=== PATIENT | female | born 1995 | race Caucasian/White ===

== ENCOUNTER 2020-01-21 13:40 | Emergency (ER) | payer OTHER, SELFPAY ==
[2020-01-21 13:41] VITALS: BP 144/79; PULSE 109; RESP 16; TEMP 36.1; O2SAT 96; BMI 23.3
--- NOTE | 2020-01-21 14:09 | US_ITS ---
STUDY: ULTRASOUND OF THE FEMALE PELVIS - COMPLETE REASON FOR EXAM: Female, 24 years old. HEAVY BLEEDING/PAIN IUD PLACEMENT NO LMP KNOWN LMP: Unknown. TECHNIQUE: Transvaginal TECHNICAL QUALITY: Adequate. COMPARISON: None. FINDINGS: The uterus is anteverted and is in a midline position. The uterus measures 5.8 cm x 3.8 cm x 2.4 cm. Normal uterine cervix. The endometrium measures 2.7 mm in thickness, and is hyperechoic. There is no demonstrated endometrial mass. There is no demonstrated myometrial mass. I.U.D. - The patient does have an I.U.D. The right ovary is visualized. The right ovary measures 3.7 cm x 3 cm x 1.7 cm. There is no right ovarian cyst or ovarian mass. There is no visualized right adnexal mass or complex lesion. There is normal arterial and normal venous vascularity. The left ovary is visualized. The left ovary measures 3.4 cm x 1.9 cm x 1.8 cm. There is no left ovarian cyst or ovarian mass. There is no visualized left adnexal mass or complex lesion. There is normal arterial and normal venous vascularity. There is no fluid in the cul-de-sac. Polycystic ovary disease: No. US/Transvaginal Non- IMPRESSION: Normal female pelvis. Electronically Signed: Otilio Paul, at 15:37 EDT , Service support ,
--- NOTE | 2020-01-21 14:12 | ED.VIS.GEN ---
History of Present Illness Chief Complaint: Vag Bleeding Informant: Patient Narrative: Patient is a 24-year-old previously healthy female who presents to the emergency department for heavy vaginal bleeding, abdominal discomfort. She states that this started yesterday. She never has a menstrual cycle in the middle of the month. She has not had a menstrual period since having a Mirena IUD placed 1 year ago. She does occasionally have spotting. Every couple months she does get some irritation from the IUD. States that the pain is new and she believes it might be from this. Today whenever she went to the bathroom she thought that she passed tissue. She is currently sexually active. No concern for STD. No vaginal discharge. Currently rates abdominal pain as mild. No known aggravating or relieving factors. Has not tried anything for this. States she is gone through 5 tampons since yesterday. Denies any lightheadedness, chest pain or shortness of breath. No back pain. No urinary symptoms. No previous pregnancies. She did have one episode of vomiting yesterday but related that to drinking margaritas and [place] food. No nausea/vomiting today. No change in bowel habits. Past Medical History - Allergies and Home Meds Allergies/Adverse Reactions: Allergies No Known Allergies Allergy (Verified 01/21/20 13:40) Primary Care Physician: Selvin Velázquez MD [STAFF PHYSICIAN] - 3-5 Days Prior records reviewed: Yes Past Medical History: None Surgical History: - - Tonsillectomy Smoking Status: Never smoker Review of Systems All systems negative except as indicated General: Denies: Chills, Fever, Sweats Eyes: Denies: Visual changes - bilaterally, Diplopia ENT: Denies: Rhinorrhea, Sore throat Cardiovascular: Denies: Chest pain, Palpitations Respiratory: Denies: Dyspnea, Cough, Dyspnea on exertion Gastrointestinal: Reports: Abdominal pain. Denies: Nausea, Vomiting, Diarrhea, Melena, Hematochezia Genitourinary: Denies: Dysuria, Hematuria, Frequency Musculoskeletal: Denies: Back pain, Extremity Pain Skin: Denies: Rash, Wounds Neurological: Denies: Headache, Weakness, Numbness Physical Exam Vital Signs/Narrative: Vital Signs Temp Pulse Resp BP Pulse Ox 01/21/20 13:41 97 F L 109 H 16 144/79 H 96 Inital Vital Signs reviewed: Yes General: Well nourished, Well developed, No Acute Distress Head: Normocephalic, Atraumatic Eyes: Perrl, EOMI ENT: Moist mucous membranes, No rhinorrhea Neck: Supple, Nontender Cardiovascular: Regular rate, Regular rhythm, No murmurs Respiratory: No distress, CTA bilaterally, Chest nontender Abdomen: Soft, Nondistended, Normal bowel sounds, Tender - Mild tenderness to the left lower quadrant Back: Nontender, Normal Inspection. Negative for: CVA tenderness Extremities: Nontender, No edema. Negative for: Calf Tenderness Skin: Normal color, No rash Neurological: Alert, Oriented x3, Cranial nerves II-XII grossly intact, Normal Strength, Normal Sensation Psychological: Normal affect, Normal Mood Diagnostic/Tx/Re-eval - Medical Decision Making Patient presents to the emergency department for abnormal uterine bleeding and mild abdominal pain. She is concerned about her IUD. She also thought she might have passed tissue today. She does not think she was . Upon arrival to the emerge department mildly tachycardic but does not have any symptoms of anemia. Check basic lab work, urine, urine and ultrasound. Urine is negative. Patient not overly anemic. No significant acute lab work abnormality. No evidence of TIA on urinalysis. Ultrasound was unremarkable for any acute abnormality. IUD is present without any free fluid. Patient is nontoxic-appearing. Has a benign abdominal exam. Will discharge home in stable condition. She is instructed on return precautions including any worsening bleeding with any symptoms of anemia. She otherwise is to follow-up with her [employer]. She understands and is agreeable this plan. Will discharge home in stable condition. ED Disposition - Plan for ED Patient: Disposition: Home or Assisted Living Diagnosis: Abnormal uterine bleeding Instructions: ED Bleed Irregular Vaginal Referrals: Selvin Velázquez MD [STAFF PHYSICIAN] - 3-5 Days
[2020-01-21 14:29] LABS: Absolute Lymphocyte Count 1.95 X10^3/uL (0.83-4.51); Absolute Neutrophil Count 7.6 X10^3/uL (2.0-7.7); Basophil# 0.02 X10^3/uL; Basophil% 0.2 % (0-1); Eosinophil# 0.04 X10^3/uL; Eosinophils% 0.4 % (0-5); Hematocrit 43.2 % (37-47); Hemoglobin 14.1 g/dL (12.0-15.0); Lymphocyte # 1.95 X10^3/ul (4.0); Lymphocyte % 18.7 % (19-41); Mean Corp Hgb Conc 32.6 g/dL (32-36); Mean Corpuscular Hgb 32.9 pg (27.0-32.0); Mean Corpuscular Volume 100.7 fL (81-99); Mean Platelet Vol. 9.3 fl (6.2-12.0); Monocyte# 0.77 X10^3/uL; Monocyte% 7.4 % (0-10); NRBC Flagged by Analyzer 0 % (0-5); Neutrophil # 7.64 X10^3/uL (2.7-7.7); Neutrophil % 73.1 % (47-70); Platelet Count 250 K/mm3 (150-450); RBC Distribution Width CV 12.5 % (11.6-14.6); RBC Distribution Width SD 46.1 fl (35.1-43.9); Red Blood Count 4.29 M/mm3 (4.2-5.4); White Blood Count 10.4 K/mm3 (4.4-11.0)
[2020-01-21 14:41] LABS: Anion Gap 5 (5-15); BUN 5 mg/dL (7-18); BUN/Creat Ratio 6.6 RATIO (10-20); Calcium,Total 9.1 mg/dL (8.5-10.1); Chloride 106 mmol/L (98-107); Creatinine, Serum 0.76 mg/dL (0.55-1.02); EST Glomerular Filtration Rate 100 mL/min (>60); Est Glom Filt Rate - Afr Amer 121 mL/min (>60); Estimated Creatinine Clearance 104.48 ml/min; Glucose 88 mg/dL (74-106); Potassium 3.5 mmol/L (3.5-5.1); Sodium Level 141 mmol/L (136-145)
[2020-01-21 15:16] LABS: Bacteria 0 SEEN /hpf (None Seen); Mucous, Urine 0 SEEN /hpf (<or=2+); Red Blood Cells-Urine 0 SEEN /hpf (0-5); White Blood Cells 0 SEEN /hpf (0-5)
[2020-01-21 15:17] LABS: Color, Urine Yellow (Yellow); Glucose, Dipstick Normal (Normal); Ketone-Dipstick Negative (Negative); Leukocyte Esterase-Dipstick Negative /ul (Negative); Nitrite-Dipstick Negative (Negative); Occult Blood-Urine 10 /ul (Negative); Protein-Dipstick Negative (Negative); Urine Bilirubin Dipstick Negative (Negative); Urine Clarity Sl. Cloudy (Clear); Urine Urobilinogen Normal (Normal); Urine pH 6.5 (5.0 - 8.0)
[2020-01-21 15:20] LABS: Internal QC Validated? YES +Cl - CLEAR BKGD; Pregnancy, Urine Negative Negative
[2020-01-21 15:32] LABS: Squamous Epithelial Cells - UA 0-5 SEEN /hpf (5-10)
[2020-01-21 15:48] VITALS: BP 110/75; PULSE 78; RESP 16; TEMP 36.7; O2SAT 98
[2020-01-21 16:16] VITALS: BP 105/72; PULSE 68; RESP 16; O2SAT 97
== END 2020-01-21 16:17 | disposition home or self-care (01) ==
PROVIDERS: Emergency Provider Emergency Medicine
DX: N93.9 Abnormal uterine and vaginal bleeding, unspecified (principal); Z97.5 Presence of (intrauterine) contraceptive device
CPT/HCPCS: 76830; 80048; 81001; 81025; 85025; 99283; A4216

== ENCOUNTER → 2020-02-12 12:33 | Outpatient (CLI) | payer OTHER, SELFPAY ==
[2020-02-12 09:58] VITALS: BMI 23.3
[2020-02-15 03:07] LABS: Chlamydia By Nucleic Acid AMP Negative (Negative)
[2020-02-15 07:53] LABS: Gonococcus By Nucleic Acid AMP Negative (Negative)
[2020-02-19 18:41] LABS: HPV Reflexed? NOT INDICATED
== END ==
PROVIDERS: Referring Provider Nurse Practitioner Women's Health; Visit Provider Nurse Practitioner Women's Health
DX: Z12.4 Encounter for screening for malignant neoplasm of cervix (principal); Z11.3 Encounter for screening for infections with a predominantly sexual mode of transmission; R10.2 Pelvic and perineal pain
CPT/HCPCS: 87086; 87088; 87491; 87591; 88175; G0145

== ENCOUNTER → 2020-02-24 14:36 | Outpatient (CLI) | payer OTHER, SELFPAY ==
[2020-02-24 14:00] VITALS: BMI 23.0
[2020-02-24 15:42] LABS: HIV - WCH Non-Reactive (Nonreactive)
[2020-02-25 04:31] LABS: Rapid Plasmin Reagin (RPR) NONREACTIVE (NONREACTIVE)
[2020-02-26 05:07] LABS: HEPATITIS B SURFACE AG Negative (Negative); Hepatitis A IgM Antibody Negative (Negative); Hepatitis B Core AB IgM Negative (Negative)
[2020-02-26 08:40] LABS: HSV 2 IgG < 0.91 index (0.00-0.90); Hep C Antibodies 0.1 s/co ratio (0.0-0.9)
[2020-02-27 20:07] LABS: Chlamydia By Nucleic Acid AMP Negative (Negative)
[2020-02-27 20:50] LABS: Gonococcus By Nucleic Acid AMP Negative (Negative)
== END ==
PROVIDERS: Referring Provider Nurse Practitioner Women's Health; Visit Provider Nurse Practitioner Women's Health
DX: Z11.3 Encounter for screening for infections with a predominantly sexual mode of transmission (principal)
CPT/HCPCS: 36415; 80074; 86592; 86695; 86696; 86703; 87491; 87591